=== PATIENT | female | born 1995 | race Two or more races ===

== ENCOUNTER 2023-11-10 10:00 | Observation (INO) | payer MEDICAID ==
[~2023-11-10 10:00] MED LIST: PREN-129 OR
== END 2023-11-10 12:40 | disposition home or self-care (01) ==
LOC: LDRP 10:00
PROVIDERS: ADMIT Obstetrics & Gynecology; ATTEND Obstetrics & Gynecology
DX: O48.0 Post-term pregnancy (principal); Z3A.40 40 weeks gestation of pregnancy
CPT/HCPCS: 59025; 76818; 81002; 94760; G0378

== ENCOUNTER 2023-11-11 09:53 | Inpatient (IN) | payer MEDICAID ==
[~2023-11-11] VITALS: Ht 165.1 cm; Wt 122.5 kg
[2023-11-11] MEDS ORDERED: LACTATED RINGER'S 2,000 ML IV ONE (11:45)
[2023-11-11] MEDS ORDERED: LACT. RINGERS/OXYTOCIN 20UNITS 500 ML IV ONE ×2 (12:45→13:15)
[2023-11-11] MEDS ORDERED: PROMETHAZINE HCL 25 MG/ML 1ML IM PRN (12:45)
[2023-11-11] MEDS ORDERED: BUTORPHANOL TARTRATE 2 MG/1 ML VIAL IV PRN ×2 (12:45)
[2023-11-11] MEDS ORDERED: LACT. RINGERS/OXYTOCIN 20UNITS 1,000 ML IV SCH (12:45)
[2023-11-11] MEDS ORDERED: PHISODERM TOP SOLN 240ML BTL TOP PRN (12:45)
[2023-11-11] MEDS ORDERED: TERBUTALINE SULFATE 1 MG/ML 1ML VIAL SC PRN (12:45)
[2023-11-11] MEDS ORDERED: WITCH HAZEL-GLYCERIN PAD TOP PRN (12:45)
[2023-11-11] MEDS ORDERED: PROMETHAZINE HCL 25 MG/ML 1ML IV PRN (12:45)
[2023-11-11] MEDS ORDERED: LIDOCAINE 2%HCL (LOCAL ANESTH.) INJ 20ML MDV IJ PRN (12:45)
[2023-11-11 13:51] LABS: Basophils # (auto) 0 10 ^3/uL (0-0.2); Basophils % (auto) 0.2 % (0.0-2.0); Eosinophils # (auto) 0 10 ^3/uL (0-0.8); Eosinophils % (auto) 0.1 % (0.0-7.0); Hemoglobin 12.2 g/dL (12.2-16.2); Lymphocytes # (auto) 1.3 10 ^3/uL (0.4-5.4); Lymphocytes % (auto) 8.9 % (10.0-50.0); Mean Corpuscular Hemoglobin 27.6 pg (28.0-32.0); Mean Corpuscular Volume 83.6 fL (80.0-100.0); Monocytes # (auto) 0.5 10 ^3/uL (0-1.3); Monocytes % (auto) 3.5 % (0.0-12.0); Neutrophils # (auto) 12.3 10 ^3/uL (1.6-8.6); Neutrophils % (auto) 87.3 % (37.0-80.0); Red Blood Cells 4.42 10^6/uL (4.0-5.20); Red Cell Distribution Width 14.8 % (11.8-14.3); White Blood Cell 14.1 10^3/uL (4.4-10.8)
[2023-11-11 13:54] LABS: Fern Testing Positive
[2023-11-11 14:07] LABS: Alanine Aminotransferase 14 U/L (7-40); Alkaline Phosphatase 198 U/L (46-116); Anion Gap 9 (5-15); Aspartate Aminotransferase 16 U/L (13-40); Bilirubin, Total 0.6 mg/dL (0.2-1.0); Carbon Dioxide 22 mmol/L (20-30); Chloride 105 mmol/L (98-107); Glucose 91 mg/dL (74-106); Potassium 3.1 mmol/L (3.5-5.1); Sodium 136 mmol/L (136-145); Total Protein 6.9 g/dL (5.7-8.2)
[2023-11-11] MEDS ORDERED: ROPIVACAINE HCL 100 ML ONE (14:08)
[2023-11-11] MEDS: DERMOPLAST 60ML BOTTLE TOP PRN (14:14)
[2023-11-11] MEDS ORDERED: ePHEDrine SULFATE 50 MG/ML AMP IV ONE (14:15)
[2023-11-11] MEDS ORDERED: NALOXONE HCL 0.4 MG/ML VIAL IV ONE (14:15)
[2023-11-11] MEDS: LACTATED RINGER'S 1,000 ML IV SCH ×2 (14:15→22:04)
[2023-11-11] MEDS ORDERED: fentaNYL CITRATE 100 MCG/2 ML VL IV ONE (14:15)
[2023-11-11 14:22] LABS: INR 0.95 (0.9-1.15); Partial Thromboplastin Time 29.9 SEC (24.5-34.5)
[2023-11-11 14:34] LABS: BUN/Creatinine Ratio 11.4 (10.0-20.0); Blood Urea Nitrogen < 5 mg/dL (9-23)
[2023-11-11 14:36] LABS: Amphetamine Screen, Urine Neg (NEGATIVE); Benzodiazephine Screen, Urine Neg (NEGATIVE)
[2023-11-11 14:37] LABS: Barbiturate Scree,Urine Neg (NEGATIVE); Cannabinoid Screen, Urine Neg (NEGATIVE); Cocaine Screen, Urine Neg (NEGATIVE); Opiate Scree,Urine Neg (NEGATIVE); Phencyclidine Screen, Urine Neg (NEGATIVE)
[2023-11-11 14:55] LABS: Urine Bacteria FEW /hpf (None Seen); Urine Blood 2+ /uL (Negative); Urine Clarity Clear (Clear); Urine Color Colorless (Yellow); Urine Protein, UAD Negative (Negative); Urine Specific Gravity 1.007 (1.001-1.035); Urine Urobilinogen Normal (Negative); Urine WBC 8 /hpf (0 - 5); Urine pH 6.5 (5.0-8.0)
[2023-11-11] MEDS ORDERED: miSOPROStol 100 mcg TAB ONE (15:41)
[2023-11-11] MEDS ORDERED: METHYLERGONOVINE MALEATE 0.2 MG/ML AMP IM ONE (15:41)
[2023-11-11] MEDS ORDERED: ACETAMINOPHEN 325 MG TAB PO PRN (16:30)
[2023-11-11] MEDS ORDERED: IBUPROFEN 600 MG TAB PO PRN (16:30)
[2023-11-11 19:00] VITALS: BP 125/65; PULSE 98; RESP 20; TEMP 101.9; O2SAT 99
[2023-11-11 19:30] VITALS: TEMP 100.5
[2023-11-11] MEDS: ceFAZolin 1GM/50ML 50 ML IV SCH (22:03)
[2023-11-11] MEDS ORDERED: DOCUSATE SOD 100 MG CAP PO SCH (22:30)
[2023-11-11 23:00] VITALS: BP 105/56; PULSE 77; RESP 18; TEMP 98.2; O2SAT 97
[2023-11-12 03:04] VITALS: RESP 16
[2023-11-12] MEDS: ceFAZolin 1GM/50ML 50 ML IV SCH ×3 (06:22→21:37)
[2023-11-12 06:55] VITALS: BP 99/53; PULSE 68; RESP 16; O2SAT 98
[2023-11-12 07:00] VITALS: RESP 18
[2023-11-12] MEDS ORDERED: DOCUSATE CALCIUM 240 MG CAP PO SCH (10:00)
[2023-11-12 11:12] VITALS: BP 105/63; PULSE 76; RESP 16; TEMP 98.4; O2SAT 98
[2023-11-12 15:25] VITALS: BP 107/68; PULSE 88; RESP 16; TEMP 98.4; O2SAT 98
[2023-11-12 19:00] VITALS: BP 120/62; PULSE 90; RESP 20; TEMP 98.5; O2SAT 99
[2023-11-12] MEDS: DERMOPLAST 60ML BOTTLE TOP PRN (21:37)
[2023-11-14 07:06] LABS: RPR Non Reactive (Non Reactive)
[2023-11-14 19:06] LABS: Treponema pallidum Ab (FTA-Ab) Non Reactive (Non Reactive)
== END 2023-11-12 23:11 | disposition home or self-care (01) | DRG 560 ==
LOC: UNDOADMOB 09:53 → LDRP 09:53 → OBSVTOIN 12:35 → LDRP 12:35 → INTOOBSV 12:35 → LDRP 12:42 → OBSVTOIN 12:42 → LDRP 17:49
PROVIDERS: ADMIT Obstetrics & Gynecology; ATTEND Obstetrics & Gynecology
PROC: 10E0XZZ Delivery of Products of Conception, External Approach (ICD-10-PCS; principal; 2023-11-11)
PROC: 0KQM0ZZ Repair Perineum Muscle, Open Approach (ICD-10-PCS; 2023-11-11)
PROC: 3E0R3BZ Introduction of Anesthetic Agent into Spinal Canal, Percutaneous Approach (ICD-10-PCS; 2023-11-11)
PROC: 00HU33Z Insertion of Infusion Device into Spinal Canal, Percutaneous Approach (ICD-10-PCS; 2023-11-11)
DX: O77.0 Labor and delivery complicated by meconium in amniotic fluid (principal); Z37.0 Single live birth; E66.01 Morbid (severe) obesity due to excess calories; O99.214 Obesity complicating childbirth; O70.1 Second degree perineal laceration during delivery; Z3A.40 40 weeks gestation of pregnancy
CPT/HCPCS: 36415; 59025; 59409; 62282; 76818; 80053; 80307; 81001; 81002; 84112; 85025; 85610; 85730; 86592; 86850; 86900; 86901; 94760; 96360; 96361; 96365; 96366; 96372; G0378; J2590